=== PATIENT | male | born 1970 | race Caucasian/White ===

== ENCOUNTER 2025-07-17 12:58 | Day surgery (SDC) | payer OTHER ==
[2025-07-17] VITALS (16 sets, daily range): BP systolic 109–162; BP diastolic 63–91
[~2025-07-17] VITALS: Ht 172.7 cm; Wt 76.9 kg
--- NOTE | 2025-07-17 13:57 | NUR ---
Ambulatory in Day Surgery WITH STEADY GAIT. History, Chart, Medications and Allergies reviewed before start of procedure. Pre-Op teaching done. Pt verbalizes understanding. Patient States Post-Procedure ride home has been arranged WITH SPOUSE. ALL BELONGINGS PLACED UNDER GURN. GLASSES REMAIN IN PLACE DURING PRE OP.
--- NOTE | 2025-07-17 14:55 | NUR ---
07/17/25 5330 Kristina Schwab CONFIRMED AND REVIEWED H&P, MEDCICATIONS, ALLERGIES, MEDICAL HISTORY, RESPIRATORY HISTORY, VITAL SIGNS, 3-LEAD EKG, CONSENTS, AND PHYSICIAN ORDERS. PATIENT CONFIRMS NPO STATUS AND AGREES WITH SCHEDULED PROCEDURE. MONITOR INTACT WITH CONTINUOUS PULSE OXIMETRY, CAPNOGRAPHY, 3-LEAD EKG, INTERMITTENT BP. SUPPLEMENTAL O2 TO BE TITRATED THROUGHOUT PROCEDURE TO MAINTAIN O2 SATURATION ABOVE 90%. PATIENT DETERMINED TO BE ASA APPROPRIATE FOR PROPOFOL SEDATION PRIOR TO START OF PROCEDURE BY DR. MARK.
--- NOTE | 2025-07-17 15:52 | NUR ---
Patient States Post-Procedure ride home has been arranged. Discharged via wheelchair to private car for ride home. Discharge instructions reviewed with patient. Patient verbalizes understanding. Copy given to patient to take home.
== END 2025-07-17 22:00 | disposition home or self-care (01) ==
LOC: ORSCMMR 12:58
PROVIDERS: Surgery
PROC: 0DBK8ZX Excision of Ascending Colon, Via Natural or Artificial Opening Endoscopic, Diagnostic (ICD-10-PCS; principal; 2025-07-17 14:30)
PROC: 0DBL8ZX Excision of Transverse Colon, Via Natural or Artificial Opening Endoscopic, Diagnostic (ICD-10-PCS; principal; 2025-07-17 14:30)
DX: Z12.11 Encounter for screening for malignant neoplasm of colon (principal); K63.5 Polyp of colon; D12.3 Benign neoplasm of transverse colon; Z83.719 Family history of colon polyps, unspecified; E78.5 Hyperlipidemia, unspecified
CPT/HCPCS: 88305; J2704; J7120